=== PATIENT | female | born 1985 | race Hispanic/Latino ===

== ENCOUNTER 2020-01-20 08:49 | Emergency (ER) | payer OTHER ==
[2020-01-20] MEDS ORDERED: KETOROLAC TROMETHAMINE 60 MG/2 ML VIAL ONE (09:17)
[2020-01-20] MEDS ORDERED: MORPHINE SULFATE 4 MG/1ML SYG ONE (10:28)
== END 2020-01-20 12:09 | disposition home or self-care (01) ==
LOC: EDH 08:49
DX: S46.211A Strain of muscle, fascia and tendon of other parts of biceps, right arm, initial encounter (principal); M75.21 Bicipital tendinitis, right shoulder; Z88.7 Allergy status to serum and vaccine; X58.XXXA Exposure to other specified factors, initial encounter; Y93.89 Activity, other specified; Y92.89 Other specified places as the place of occurrence of the external cause; Y99.8 Other external cause status
CPT/HCPCS: 73030; 96372 ×2; 99284; J1885; J2270

== ENCOUNTER 2020-06-22 09:25 | Emergency (ER) | payer OTHER ==
[2020-06-22 11:00] LABS: CREATININE 0.8 mg/dL (0.5-1.5); POTASSIUM 3.8 mmol/L (3.5-5.1)
[2020-06-22 11:02] LABS: ALBUMIN 3.7 g/dL (3.5-5.0); BILIRUBIN,TOTAL 0.3 mg/dL (0.2-1.0); CRP QUANTITATIVE 41.4 mg/L (0.00-9.0); TOTAL PROTEIN, SERUM 8.2 g/dL (6.0-8.3)
[2020-06-22] MEDS ORDERED: METHYLPREDNISOLONE SOD SUCC 125MG/2ML VIAL ONE (11:47)
[2020-06-22] MEDS ORDERED: KETOROLAC TROMETHAMINE 30MG/ML ONE (12:38)
== END 2020-06-22 12:55 | disposition home or self-care (01) ==
LOC: EDH 09:25
DX: M13.0 Polyarthritis, unspecified (principal)
CPT/HCPCS: 36415; 73130 ×2; 80053; 82550; 84681; 85651; 86038; 86140; 86431; 96374; 96375; 99284; J1885; J2930